=== PATIENT | female | born 1985 | race Caucasian/White ===

== ENCOUNTER → 2017-07-08 | Outpatient (CLI) | payer OTHER ==
[~2017-07-08] MED LIST: AMOX500 PO; AZIT250 PO; BIRTH CONTROL; BIRTH CONTROL IMPLAN; Bactrim Ds Tab1 EACH PO; CEPH500 PO; CLIN150 PO; DOXY100 PO; FLUC150A PO; HYDACE5; HYDACE5 PO; HYDR1TAB94 PO; IBUP800; IBUP800 PO; LEVFLO500; METR500; MULVITMINE; MULVITMINE PO; NAPR500 PO; NAPR550 PO; PHENA200 PO; Pyridium100 MG PO; Pyridium200 MG PO; RANI150; RXOXYACE PO; SULTRIDS PO; Vibramycin100 MG PO; Zofran Odt4 MG SL
== END ==
LOC: PLD 07:46
DX: Z87.42 Personal history of other diseases of the female genital tract (principal); Z86.19 Personal history of other infectious and parasitic diseases
CPT/HCPCS: 88305

== ENCOUNTER 2018-10-27 15:13 | Emergency (ER) | payer OTHER ==
[~2018-10-27] VITALS: Ht 172.7 cm; Wt 68.0 kg
[2018-10-27] MEDS ORDERED: CEPH500 PO (17:00)
== END 2018-10-27 17:15 | disposition home or self-care (01) ==
LOC: ER 15:13
DX: S80.852A Superficial foreign body, left lower leg, initial encounter (principal); W22.8XXA Striking against or struck by other objects, initial encounter; Z79.899 Other long term (current) drug therapy; F17.200 Nicotine dependence, unspecified, uncomplicated
CPT/HCPCS: 73590; 90714

== ENCOUNTER → 2019-04-29 | Outpatient (CLI) | payer OTHER ==
[2019-05-03 14:07] LABS: HPV 16 Negative (Negative); HPV 18 Negative (Negative); HPV OTHER HR TYPES Negative (Negative)
== END ==
LOC: LAB SHORT 08:17 → OLS 08:17 → LAB SHORT 04-30 08:17
PROVIDERS: Registered Nurse Community Health
DX: Z12.4 Encounter for screening for malignant neoplasm of cervix (principal); R87.610 Atypical squamous cells of undetermined significance on cytologic smear of cervix (ASC-US); Z86.19 Personal history of other infectious and parasitic diseases
CPT/HCPCS: 87624; G0123

== ENCOUNTER → 2019-04-29 | Outpatient (CLI) | payer OTHER | LOC: LAB 14:30 → LAB SHORT 14:30 | DX: Z12.4 Encounter for screening for malignant neoplasm of cervix (principal); Z30.46 Encounter for surveillance of implantable subdermal contraceptive; R87.610 Atypical squamous cells of undetermined significance on cytologic smear of cervix (ASC-US); Z86.19 Personal history of other infectious and parasitic diseases | CPT/HCPCS: 87070; 87205 ==

== ENCOUNTER → 2019-11-24 | Outpatient (CLI) | payer OTHER ==
[2019-11-24 17:32] LABS: Hematocrit 42.5 % (33.0-51.0); Hemoglobin 13.5 g/dL (11.5-16.0); Mean Corpuscular HGB 30.5 pg (26.0-34.0); Mean Corpuscular HGB Conc 31.8 g/dL (31.5-36.5); Mean Corpuscular Volume 96 fL (80-100); Mean Platelet Volume 12.1 fL (9.1-12.4); Platelet Count 189 K/mm3 (150-400); RDW Coefficient Variation 12.9 % (11.7-14.2); RDW Standard Deviation 45.8 fL (35.1-46.3); Red Blood Cell Count 4.42 M/mm3 (3.80-5.20); White Blood Cell Count 6.17 K/mm3 (4.00-11.30)
[2019-11-24 17:38] LABS: Alanine Aminotransfer (ALT/SGP 30 U/L (12-78); Albumin, Blood 3.8 g/dL (3.4-5.0); Albumin/Globulin Ratio 1.1 (0.8-1.8); Alk Phos 74 U/L (50-136); Anion Gap 5 mmol/L (6-16); Aspartate Aminotrans (AST/SGOT 20 U/L (12-37); Bilirubin, Total 0.5 mg/dL (0.1-1.0); Blood Urea Nitrogen 19 mg/dL (8-24); Bun/Creatinine Ratio 22.1 (12.0-20.0); CO2, Blood 28 mmol/L (21-32); Calcium, Blood 8.6 mg/dL (8.5-10.1); Chloride, Blood 107 mmol/L (98-108); Creatinine, Blood 0.86 mg/dL (0.40-1.00); Free Thyroxine 0.91 ng/dL (0.70-1.60); Globulin, Blood 3.6 g/dL (2.2-4.0); Glomerular Filtration Rate >60 (60-); Glucose, Blood 87 mg/dL (70-99); Potassium, Blood 4.5 mmol/L (3.5-5.5); Sodium, Blood 140 mmol/L (136-145); Total Protein, Blood 7.4 g/dL (6.4-8.2)
[2019-11-24 17:46] LABS: Triiodothyronine, Free 2.76 pg/mL (2.18-3.98)
[2019-11-24 18:40] LABS: BAND PERCENT MAN 4 % (0-8); BASOPHILS ABSOLUTE MAN 0.06 K/mm3 (0.00-0.23); BASOPHILS PERCENT MAN 1 % (0-2); EOSINOPHILS ABSOLUTE MAN 0.24 K/mm3 (0.00-0.68); EOSINOPHILS PERCENT MAN 4 % (0-6); LYMPHOCYTES % ATYPICAL MANUAL 2 % (0-0); LYMPHOCYTES ABSOLUTE MAN 1.78 K/mm3 (0.84-5.20); LYMPHOCYTES PERCENT MAN 27 % (21-46); METAMYELOCYTE ABSOLUTE MAN 0.06 K/mm3 (0.00-0.00); METAMYELOCYTE PERCENT MAN 1 % (0-0); MONOCYTES ABSOLUTE MAN 0.61 K/mm3 (0.16-1.47); MONOCYTES PERCENT MAN 10 % (4-13); NEUTROPHILS ABSOLUTE MAN 3.39 K/mm3 (1.96-9.15); SEG NEUTROPHILS PERCENT MAN 51 % (41-73); TOTAL CELLS COUNTED 100
== END ==
LOC: LAB SHORT 11:30 → LAB 11:30 → LAB FUT 11-23 13:00 → EDSTATUS 11-23 13:00
PROVIDERS: Registered Nurse Community Health
DX: Z13.228 Encounter for screening for other metabolic disorders (principal); Z13.29 Encounter for screening for other suspected endocrine disorder
CPT/HCPCS: 80053; 84439; 84443; 84481; 85025

== ENCOUNTER 2019-11-26 08:47 | Day surgery (SDC) | payer OTHER | END 2019-11-26 23:15 | disposition home or self-care (01) | LOC: MOI US 08:47 → MOI MAM 09:15 → MOI US 23:15 | DX: D24.2 Benign neoplasm of left breast (principal) | CPT/HCPCS: 19083; 77065; A4648 ==

== ENCOUNTER → 2020-03-22 | Outpatient (CLI) | payer OTHER ==
[2020-03-24 13:10] LABS: CHLAMYDIA BY NAA Negative (Negative); GONOCOCCUS BY NAA Negative (Negative); TRICH VAG BY NAA Negative (Negative)
== END ==
LOC: LAB 19:24 → LAB SHORT 19:24
PROVIDERS: Registered Nurse Community Health
DX: N89.8 Other specified noninflammatory disorders of vagina (principal); Z20.2 Contact with and (suspected) exposure to infections with a predominantly sexual mode of transmission
CPT/HCPCS: 87070; 87205; 87491; 87591; 87661

== ENCOUNTER 2021-02-08 12:34 | Day surgery (SDC) | payer OTHER ==
[~2021-02-08] VITALS: Ht 172.7 cm; Wt 69.4 kg
[~2021-02-08 12:34] MED LIST changes: +CLIN300 PO; +Cephalexin500 M1 PO
--- NOTE | 2021-02-08 15:29 | NUR ---
02/08/21 1529 Julia Appiah 1510 PT.'S RIDE CALLED. PT. VERBALIZES READY TO GO HOME.
== END 2021-02-08 15:18 | disposition home or self-care (01) ==
LOC: ORSCSDS 12:34 → ORD 14:00 → ORSCSDS 14:00
PROVIDERS: Surgery
PROC: 0HBU0ZZ Excision of Left Breast, Open Approach (ICD-10-PCS; 2021-02-08)
PROC: 0HBU0ZX Excision of Left Breast, Open Approach, Diagnostic (ICD-10-PCS; principal; 2021-02-08 14:00)
DX: D24.2 Benign neoplasm of left breast (principal); Z87.891 Personal history of nicotine dependence
CPT/HCPCS: 88307; J0690; J1100; J1885; J2405; J2704; J3010; J7120

== ENCOUNTER → 2021-10-11 | Outpatient (CLI) | payer OTHER ==
[2021-10-12 11:13] LABS: Candida species (DNA Probe) Negative (NEGATIVE); G. vaginalis (DNA Probe) Positive (NEGATIVE); T. vaginalis (DNA Probe) Negative (NEGATIVE)
== END ==
LOC: LAB SHORT 19:02
PROVIDERS: Nurse Practitioner Family
DX: N39.0 Urinary tract infection, site not specified (principal); N89.8 Other specified noninflammatory disorders of vagina
CPT/HCPCS: 87086; 87480; 87510; 87660

== ENCOUNTER → 2023-08-11 | Outpatient (CLI) | payer OTHER ==
[~2023-08-11] MED LIST changes: +ONDA4ODT MM
== END | disposition home or self-care (01) ==
LOC: LAB SHORT 14:43 → LAB 14:43
PROVIDERS: Registered Nurse Community Health
DX: Z12.4 Encounter for screening for malignant neoplasm of cervix (principal); N89.8 Other specified noninflammatory disorders of vagina
CPT/HCPCS: 87070; 87205

== ENCOUNTER → 2024-08-25 | Outpatient (CLI) | payer OTHER ==
[2024-08-25 16:04] LABS: Candida glabrata-krusei, PCR NOT DETECTED (NOT DETECT)
[2024-08-25 16:08] LABS: Bacterial Vaginosis PCR Positive (NEGATIVE); Candida Group, PCR DETECTED (NOT DETECT)
== END ==
LOC: LAB 13:02 → LAB SHORT 13:02
PROVIDERS: Registered Nurse Community Health
DX: N89.8 Other specified noninflammatory disorders of vagina (principal)
CPT/HCPCS: 81515

== ENCOUNTER → 2025-04-18 | Outpatient (CLI) | payer OTHER | LOC: LAB 10:50 → LAB SHORT 10:50 | DX: J02.9 Acute pharyngitis, unspecified (principal) | CPT/HCPCS: 87081 ==